=== PATIENT | male | born 1975 | race Caucasian/White ===

== ENCOUNTER 2024-01-22 15:25 | Emergency (ER) | payer BC, SELFPAY ==
[2024-01-22 15:28] VITALS: BP 151/93
--- NOTE | 2024-01-22 16:20 | ED.GENMED ---
History of Present Illness
General
Chief Complaint: Weakness
Source: patient
Exam Limitations: none
Time Seen by Provider: 01/22/24 15:55
Nursing documentation reviewed up to this point in time: agreed with
History of Present Illness
History of Present Illness:
48-year-old male with past medical history of adrenal insufficiency, Crohn disease, depression presenting to the emergency department with multiple concerns. Patient's main concerns are generalized weakness fatigue worsening over the past few weeks
barely able to walk secondary to this fatigue. Also has a 'funny' sensation that is somewhat not but somewhat painful to his left groin quads knees left arm and left side of his face. This has been ongoing for a few weeks has had similar issues in
the past that seem to spontaneously resolve after receiving steroids. Denies any specific chest pain shortness breath or fevers. Denies recent illness. Also has right-sided scrotal pain. This been ongoing for a few weeks
Past History
Past History
ED Past Medical History: Other (Crohn's disease)
ED Past Surgical History: Appendectomy
Social History
Tobacco: Non-smoker
Alcohol: Occasional
Drug: None
Personal: Single
Living: with family
Review of Systems
Review of Systems
Allergies reviewed?: Yes
All Other Systems: ROS reviewed and negative except as documented in HPI and ROS
Phy Exam
Physical Exam
Physical Exam:
GENERAL: Alert , in no apparent distress
EYE: pupils equal and reactive
NECK: Supple, no significant adenopathy.
ENT: o/p clr, mmm.
CARDIAC: Regular rate and rhythm .
LUNGS: Clear breath sounds bilaterally, no acute respiratory distress, no wheezes/rales/rhonchi
ABDOMEN: Mild discomfort to the right testicle region just above the testicle otherwise scrotum without fluctuance induration redness or soft, without focal tenderness, no r/g, no cvat
NEUROLOGICAL: Alert and oriented, no focal neuro deficits 5 out of 5 upper and lower extremity strength normal sensation when palpating bilaterally, normal finger-nose and [id number] no pronator drift
SKIN: Warm and dry, skin intact.
MUSCULOSKELETAL: No edema, well perfused.
PSYCH: Normal and appropriate interaction.
Course
Orders/Labs/Results
Orders:
Orders
01/22/24 16:11
CT Head W/o Iv Contrast Urgent
Comment:
Reason For Exam: left facial pain, numbness, VALERIO
Scrotum US [US Scrotum] Urgent
Comment:
Reason For Exam: right tsticle pain
01/22/24 16:12
EKG [Electrocardiogram (*1)] Urgent
Reason for Study: Fatigue / Weakness
EKG- Treatment ONCE
01/22/24 16:38
ACTH [Adrenocorticotropic Hormone] [S] Urgent
CRP [C-Reactive Protein] Urgent
Complete Blood Count/With Diff Urgent
Comprehensive Metabolic Panel Urgent
Cortisol, Random Urgent
Creatine Phosphokinase Urgent
ESR [Erythrocyte Sed Rate] Urgent
Glucose Urgent
LDH Urgent
Comment: ADD ON
Lactic Acid Urgent
TSH Reflex To Free T4 Urgent
01/22/24 17:40
Add On- LAB Urgent
Tests Added?: AFP male/tumor marker, beta HCG serum quant, LDH
01/22/24 18:04
Urinalysis Reflex To Culture Urgent
Date Specimen was Collected: 01/22/24
Time Specimen was Collected: 18:02
01/22/24 18:30
Hydrocortisone Sod Succinate [Solu-Cortef] 100 mg IV NOW STA
01/22/24 18:44
AFP Male/Tumor Marker Urgent
HCG Male/Tumor Marker [S] Urgent
Comment: MUST BE COLLECTED
Abnormal Lab Results
01/22/24 01/22/24 01/22/24
16:38 16:38 18:04
Absolute Lymphs (auto) 1.1 L 10^3/uL
(1.2-3.4)
Neutrophils % 77.6 H %
(42.2-75.2)
Lymphocytes % 14.9 L %
(20.5-51.1)
Carbon Dioxide 20 L mmol/L
(22-30)
Glucose 102 H mg/dl 101 H mg/dl
(70-99) (70-99)
Urine Ketones 1+ A
(Negative)
01/22/24 16:38
01/22/24 16:38
Vital Signs
Initial and Last Documented VS:
Initial Vital Signs
Temp Pulse Resp BP Pulse Ox
97.6 F 62 16 151/93 95
01/22/24 15:28 01/22/24 15:28 01/22/24 15:28 01/22/24 15:28 01/22/24 15:28
Last Documented Vital Signs
Temp Pulse Resp BP Pulse Ox
97.6 F 59 24 131/77 94
01/22/24 15:28 01/22/24 19:15 01/22/24 19:15 01/22/24 19:00 01/22/24 19:15
MDM/Problems Addressed
MDM/Problems Addressed:
48-year-old male presenting to the emergency department today with concerns of generalized weakness fatigue funny sensation to his extremities and left side of his face. He has had similar symptoms in the past when he required steroids. Does have
history of [place]'s disease Crohn's disease. He has been having increasing doses of hydrocortisone recently. Does follow-up with [facility] with endocrinology and rheumatology. Upon arrival blood pressure is mildly elevated otherwise vitals are
normal. No specific focal neurologic changes mild pain to the right side of the testicle. Ultrasound ordered as well as CT scan due to the multiple neurologic symptoms. CT scan showing Chiari I malformation patient was notified of this and
advised for outpatient follow-up for this. Otherwise ultrasound performed that showed a mass in the left testicle concerning for testicular cancer. Case was discussed directly with urology they will follow him up over the next few days and tumor
markers were sent while patient was still here. Unclear how this would relate to patient's ongoing some degree of chronic symptoms. He was given a dose of IV hydrocortisone to see if this helps symptoms but otherwise will need close outpatient
follow-up. Return precautions given.
*Critical Care Note
Total Time (30-74mins, 75-104mins- exclusive of procedures): Not Applicable
ED Attending Note
-
Portions of this chart may have been created with voice recognition software.� Occasional wrong word or��sound alike� substitutions may have occurred due to the inherent limitations of voice recognition software.
Discharge Plan
Departure
Patient Disposition: Home (Routine Discharge)
Date of Disposition: 01/22/24
Time of Disposition: 19:16
Patient with high blood pressure during this ER visit?: No
Condition: Good
Covid-19: Not Applicable
Discharge Problem:
Mass of left testicle, Generalized weakness, Paresthesia
Instructions: Testicular cancer, Generalized Weakness (DC)
Prescriptions:
No Action
multivitamin [Daily Multiple] 1 EACH tablet
1 ea PO DAILY
vedolizumab [Entyvio] 300 MG/5 ML recon soln
300 mg IV .[id number]
Patient Comments:
Receives in outpatient infusion department
lamotrigine 100 MG tablet
150 mg PO DAILY
escitalopram oxalate 20 MG tablet
10 mg PO DAILY
amoxicillin-pot clavulanate 1 TABLET tablet
1 tab PO Q12 Qty: 13 0RF
Referrals:
Abel Coe MD [Active] - Follow up in 2-3 days
Martina Alberts MD [Active] - Follow up in 1 week
Samuel Martin MD [Family Provider] -
Activity Restrictions/Additional Instructions:
You came to the emergency department today with concerns of multiple symptoms. Here you had a reassuring laboratory assessment. Your ultrasound of the scrotum showed a mass of your left testicle concerning for cancerous process. It is very
important follow-up with urology this week. They are expecting your call. Otherwise your CT did not show any emergent finding but did show Chiari I malformation. You can follow-up with neurology for this. Return to the emergency department any
worsening, new or concerning symptoms. Please follow closely with your program project manager.
Interventions
Interventions:
*Risk Screen - Suicide Last Done: 01/22/24 16:45
*General Assessment Last Done: 01/22/24 16:45
*Neglect/Abuse Screening Last Done: 01/22/24 16:45
*ED COVID-19 Vaccine History Last Done: 01/22/24 16:45
*Nursing Disposition Last Done: 01/22/24 19:24
ED- Cardiac Assessment Last Done: 01/22/24 16:43
ED- Neurological Assessment Last Done: 01/22/24 16:43
ED- Pulmonary Assessment Last Done: 01/22/24 16:43
Discharge Date and Time
Discharge Date/Time: 01/22/24 19:28
Print Language: WALLISIAN
[2024-01-22 16:49] LABS: % Basophils 0.5 % (0-2); % Eosinophils 0.3 % (0-6); % Immature Granulocytes 0.3 % (0-0.5); % Lymphocytes 14.9 % (20.5-51.1); % Monocytes 6.4 % (1.7-9.3); % Neutrophils 77.6 % (42.2-75.2); Absolute Lymphocytes 1.1 10^3/uL (1.2-3.4); Absolute Monocytes 0.5 10^3/uL (0.1-0.6); Absolute Neutrophils 5.8 10^3/uL (1.4-6.5); Hematocrit 46.4 % (39.0-52.0); Hemoglobin 16.5 g/dL (13.0-18.0); Mean Corp Hgb Conc. 35.6 g/dL (33.0-37.0); Mean Corpuscular Hgb 30.3 pg (27.0-31.0); Mean Corpuscular Volume 85.3 fL (80.0-94.0); Mean Platelet Volume 10.3 fL (7.4-10.4); Nucleated Red Blood Cells % 0 % (-); Platelet Count 307 10^3/uL (130-400); Red Blood Cell Count 5.44 10^6/uL (4.70-6.10); Red Cell Dist. Width 13.1 % (11.5-14.5); White Blood Cell Count 7.4 10^3/uL (4.8-10.8)
[2024-01-22 16:58] LABS: Erythrocyte Sed Rate 3 mm/hour (0-20)
[2024-01-22 17:00] LABS: Lactic Acid 1.1 mmol/L (0.7-2.0)
[2024-01-22 17:03] LABS: ALT (SGPT) 17 U/L (0-50); AST (SGOT) 29 U/L (17-59); Albumin 4.8 g/dl (3.5-5.0); Alkaline Phosphatase 65 U/L (38-126); Blood Urea Nitrogen 14 mg/dl (9-20); Carbon Dioxide 20 mmol/L (22-30); Chloride 106 mmol/L (98-107); Creatine Phosphokinase 89 U/L (55-170); Glucose 101 mg/dl (70-99); Glucose 102 mg/dl (70-99); Potassium 4.4 mmol/L (3.5-5.1); Sodium 142 mmol/L (135-145); Total Bilirubin 0.7 mg/dl (0.2-1.3); Total Protein 7.4 g/dl (6.3-8.2); eGFR > 60.00
[2024-01-22 17:07] LABS: C-Reactive Protein < 5.00 mg/L (0.0-10.00)
[2024-01-22 17:38] LABS: Cortisol, Random 19.8 ug/dl; TSH Reflex To Free T4 1.13 uIU/ml (0.47-4.68)
[2024-01-22 18:01] VITALS: BP 135/115
[2024-01-22 18:15] LABS: LDH 171 U/L (120-246)
[2024-01-22 18:15] LABS: Urine Albumin Negative (Neg - Trace); Urine Bilirubin Negative (Negative); Urine Character Clear (Clear); Urine Color Yellow; Urine Glucose Negative (Negative); Urine Ketone 1+ (Negative); Urine Leukocyte Negative (Negative); Urine Nitrite Negative (Negative); Urine Occult Blood Negative (Negative); Urine Urobilinogen Negative (Neg - 1+)
[2024-01-22] MEDS: SOLU-CORTEF 100 MG IV (18:44)
[2024-01-22 19:00] VITALS: BP 131/77
[2024-01-22 20:35] LABS: AFP Male/Tumor Marker 4.47 ng/ml
[2024-01-25 02:45] LABS: Adrenocorticotropic Hormone 2.5 pg/mL (7.2-63.3)
[2024-01-25 03:37] LABS: HCG Male/Tumor Marker <1 IU/L (0-3)
== END 2024-01-22 19:28 | disposition home or self-care (01) ==
LOC: EMR 15:25
PROVIDERS: Physician Assistant; EMERGENCY PHYSICIAN Emergency Medicine; FAMILY PHYSICIAN Family Medicine
DX: R93.812 Abnormal radiologic findings on diagnostic imaging of left testicle (principal); R53.1 Weakness; R20.2 Paresthesia of skin; E27.1 Primary adrenocortical insufficiency; G93.5 Compression of brain; N50.82 Scrotal pain
CPT/HCPCS: 96374; 99285; 70450; 76870; 80053; 81003; 82024; 82105; 82533; 82550; 82947; 83605; 83615; 84443; 84702; 85025; 85652; 86140; 93005; 93976

== ENCOUNTER → 2024-02-01 07:30 | Outpatient (REF) | payer BC, SELFPAY | LOC: HWRAD 07:30 | PROVIDERS: ATTENDING PHYSICIAN Surgery; FAMILY PHYSICIAN Family Medicine | DX: N50.812 Left testicular pain (principal); N50.9 Disorder of male genital organs, unspecified | CPT/HCPCS: 71260; 74177; Q9967 ==

== ENCOUNTER 2024-02-03 00:41 | Emergency (ER) | payer BC, SELFPAY ==
[2024-02-03 00:43] VITALS: BP 155/113; BMI 26.8
[2024-02-03 00:46] VITALS: BP 155/113
[2024-02-03] MEDS: DILAUDID 1 MG IV (00:52)
[2024-02-03 01:01] LABS: % Basophils 0.5 % (0-2); % Eosinophils 0.6 % (0-6); % Immature Granulocytes 0.3 % (0-0.5); % Lymphocytes 27.4 % (20.5-51.1); % Monocytes 5.9 % (1.7-9.3); % Neutrophils 65.3 % (42.2-75.2); Absolute Eosinophils 0.1 10^3/uL (0-0.7); Absolute Lymphocytes 2.4 10^3/uL (1.2-3.4); Absolute Monocytes 0.5 10^3/uL (0.1-0.6); Absolute Neutrophils 5.8 10^3/uL (1.4-6.5); Hematocrit 45.3 % (39.0-52.0); Hemoglobin 16.3 g/dL (13.0-18.0); Mean Corpuscular Hgb 30.2 pg (27.0-31.0); Mean Corpuscular Volume 83.9 fL (80.0-94.0); Nucleated Red Blood Cells % 0 % (-); Platelet Count 379 10^3/uL (130-400); White Blood Cell Count 8.8 10^3/uL (4.8-10.8)
[2024-02-03 01:13] LABS: ALT (SGPT) 18 U/L (0-50); AST (SGOT) 28 U/L (17-59); Alkaline Phosphatase 50 U/L (38-126); Blood Urea Nitrogen 18 mg/dl (9-20); Carbon Dioxide 15 mmol/L (22-30); Chloride 104 mmol/L (98-107); Estimated Creatinine Clearance > 125 ml/min; Glucose 108 mg/dl (70-99); Potassium 4.2 mmol/L (3.5-5.1); Sodium 143 mmol/L (135-145); Total Bilirubin 0.6 mg/dl (0.2-1.3); Total Protein 7.7 g/dl (6.3-8.2); eGFR > 60.00
[2024-02-03 01:53] VITALS: BP 116/71
[2024-02-03 01:55] VITALS: BP 117/69
--- NOTE | 2024-02-03 02:10 | ED.GENMED ---
History of Present Illness
General
Chief Complaint: Male Genito-Urinary Symptoms
Time Seen by Provider: 02/03/24 00:45
History of Present Illness
History of Present Illness:
48-year-old male with history of Crohn's disease and recently diagnosed left testicular mass presenting to the emergency department for left testicular pain. Patient reports symptoms started earlier yesterday, have been worsening. Patient recently
seen in the hospital on 01/21 for discomfort in the testicular region, had ultrasound that showed a testicular mass. He is scheduled in 2 days for surgery with urology. Denies ever having pain like this in his testicular region. Denies urinary
issues. Denies any direct trauma or injury to the testicle region. Denies fever. Denies additional acute medical complaints
Past History
Past History
ED Past Medical History: Other (Crohn's disease)
ED Past Surgical History: Appendectomy
Social History
Tobacco: Non-smoker
Alcohol: Occasional
Drug: None
Personal: Single
Living: with family
Phy Exam
Physical Exam
Physical Exam:
General: No acute distress, uncomfortable secondary to pain
HEENT: protecting airway
Neck: appears supple
CV: Normal heart rate, regular rhythm
Resp: No accessory muscle use, no increased work of breathing
Abd: Soft and non-distended, no tenderness to palpation
Extremities: No deformities, no swelling
Neuro: alert, no focal neurologic deficit
: No significant swelling or erythema to the left testicular region. Generalized tenderness
Rectal: deferred
Psych: Normal affect
Skin: Intact
Course
Orders/Labs/Results
Orders:
Orders
02/03/24 00:42
Scrotum US [US Scrotum] Stat
Comment: tumor removal scheduled for monday
Reason For Exam: left testicular pain
02/03/24 00:45
HYDROmorphone [Dilaudid] 1 mg IV NOW STA
02/03/24 00:53
Complete Blood Count/With Diff Urgent
Comprehensive Metabolic Panel Urgent
02/03/24 03:13
Urinalysis Reflex To Culture Urgent
Date Specimen was Collected: 02/03/24
Time Specimen was Collected: 02:54
Abnormal Lab Results
02/03/24 02/03/24
00:53 03:13
Carbon Dioxide 15 L mmol/L
(22-30)
Glucose 108 H mg/dl
(70-99)
Urine Ketones 1+ A
(Negative)
02/03/24 00:53
02/03/24 00:53
Vital Signs
Initial and Last Documented VS:
Initial Vital Signs
Temp Pulse Resp BP Pulse Ox
98.1 F 96 30 155/113 99
02/03/24 00:43 02/03/24 00:43 02/03/24 00:43 02/03/24 00:43 02/03/24 00:43
Last Documented Vital Signs
Temp Pulse Resp BP Pulse Ox
98.1 F 96 16 117/69 98
02/03/24 00:43 02/03/24 01:55 02/03/24 01:55 02/03/24 01:55 02/03/24 01:55
MDM/Problems Addressed
MDM/Problems Addressed:
48-year-old male with history of Crohn's disease and known left-sided testicular mass presenting for acute testicular pain. Vital signs on arrival are normal.
On exam, patient is in no acute distress, however is uncomfortable secondary to pain. Overall benign examination of the testicular region, normal lie to the testicle with lower suspicion for torsion. However given acute onset of pain with known
testicular mass, torsion is a consideration so patient was urgently sent to ultrasound. Will also obtain urinalysis and laboratory analysis. Dilaudid administered for pain.
01:30 - Ultrasound of the scrotum shows redemonstration of a calcified mass in the left testicle, however vascular flow is demonstrated to both testicles without evidence of torsion. Pain is controlled. Labs unremarkable. Pending urine
04:10 -urine without sign of infection. Labs unremarkable. Patient remains stable and comfortable on reassessment. Feel stable for discharge with [facility] outpatient urology follow-up. Return precautions discussed
*Critical Care Note
Total Time (30-74mins, 75-104mins- exclusive of procedures): Not Applicable
ED Attending Note
-
Portions of this chart may have been created with voice recognition software.� Occasional wrong word or��sound alike� substitutions may have occurred due to the inherent limitations of voice recognition software.
Discharge Plan
Departure
Prescriptions:
No Action
lamotrigine 100 MG tablet
100 mg PO DAILY
multivitamin Tablet
1 tab PO DAILY
escitalopram oxalate 10 mg Tablet
10 mg PO DAILY
[place] 3
1 cap PO DAILY
Stelara
300 mg SC Q8W
hydrocortisone
45 mg PO DAILY
Medical Marijuana
1 dose inhalation DAILY
Referrals:
Samuel Martin MD [Family Provider] -
Interventions
Interventions:
*Risk Screen - Suicide Last Done: 02/03/24 00:43
*General Assessment Last Done: 02/03/24 00:43
*Neglect/Abuse Screening Last Done: 02/03/24 00:43
*ED COVID-19 Vaccine History Last Done: 02/03/24 00:43
ED-Male Genitourinary Assessment Last Done: 02/03/24 00:53
Discharge Date and Time
Print Language: [email or web address]
[2024-02-03 03:48] LABS: Urine Albumin Trace (Neg - Trace); Urine Bilirubin Negative (Negative); Urine Character Clear (Clear); Urine Color Yellow; Urine Glucose Negative (Negative); Urine Ketone 1+ (Negative); Urine Leukocyte Negative (Negative); Urine Nitrite Negative (Negative); Urine Occult Blood Negative (Negative); Urine Specific Gravity 1.025 (<1.030); Urine Urobilinogen 1+ (Neg - 1+)
== END 2024-02-03 04:27 | disposition home or self-care (01) ==
LOC: EMR 00:41
PROVIDERS: EMERGENCY PHYSICIAN Student in an Organized Health Care Education/Training Program; FAMILY PHYSICIAN Family Medicine
DX: N50.812 Left testicular pain (principal)
CPT/HCPCS: 99284; 96374; 76870; 80053; 81003; 85025; 93976

== ENCOUNTER 2024-02-05 06:23 | Day surgery (SDC) | payer BC, SELFPAY ==
[2024-02-05] VITALS (13 sets, daily range): BP systolic 130–154; BP diastolic 85–96; BMI 26.5
[2024-02-05] MEDS: NORMOSOL-R/PLASMALYTE-A 1000 IV (12:14)
[2024-02-05] MEDS: DILAUDID 0.5 MG IV ×2 (14:39→15:17)
[2024-02-05] MEDS: ZOFRAN 4 MG IV (14:48)
== END 2024-02-05 16:35 | disposition home or self-care (01) ==
LOC: SDS 06:23
PROVIDERS: ATTENDING PHYSICIAN Surgery
DX: D29.22 Benign neoplasm of left testis (principal)
CPT/HCPCS: 54520; 88309; 88311; 88341; 88342

== ENCOUNTER → 2024-08-22 09:17 | Outpatient (REF) | payer BC, SELFPAY | LOC: RAD 09:17 | PROVIDERS: ATTENDING PHYSICIAN Surgery; FAMILY PHYSICIAN Family Medicine | DX: D36.9 Benign neoplasm, unspecified site (principal) | CPT/HCPCS: 71270; 74178; Q9967 ==

== ENCOUNTER → 2025-03-26 15:54 | Outpatient (REF) | payer BC, SELFPAY | LOC: RAD 15:54 | PROVIDERS: ATTENDING PHYSICIAN Surgery; FAMILY PHYSICIAN Family Medicine | DX: D36.9 Benign neoplasm, unspecified site (principal) | CPT/HCPCS: 71260; 74177; Q9967 ==